=== PATIENT | female | born 1960 | race Caucasian/White ===

== ENCOUNTER 2016-10-23 16:54 | Inpatient (IN) | payer OTHER ==
[~2016-10-23] VITALS: Ht 165.1 cm; Wt 67.5 kg
[~2016-10-23 16:54] MED LIST: DILA8TAB4 PO
[2016-10-23 17:14] VITALS: BP 152/97; PULSE 143; RESP 22; TEMP 99.6; O2SAT 96
[2016-10-23] MEDS ORDERED: LORazepam 2 MG/ML VIAL IV ONE (17:45)
[2016-10-23 18:21] LABS: AMPHETAMINE, URINE NEG (NEG); BARBITURATES, URINE NEG (NEG); COCAINE, URINE POS (NEG)
[2016-10-23] MEDS ORDERED: SODIUM CHLOR 0.9% 1000 ML INJ 1,000 ML IV ONE (18:30)
[2016-10-23 18:52] LABS: AUTOMATED NEUTROPHIL # 5.3 TH/MM3 (1.8-7.7); BASOPHIL % 0.6 % (0.0-2.0); EOSINOPHIL % 0.2 % (0.0-4.0); HEMATOCRIT 35.8 % (35.0-46.0); HEMO FLAGS DIFF FINAL; LYMPH % 15.8 % (9.0-44.0); LYMPHOCYTE # 1.1 TH/MM3 (1.0-4.8); MEAN CELL VOLUME 86.4 FL (80.0-100.0); MEAN CORPUSCULAR HEMOGLOBIN 28.8 PG (27.0-34.0); MEAN CORPUSCULAR HGB CONC 33.3 % (32.0-36.0); NEUT % 77.4 % (16.0-70.0); PLATELET COUNT 215 TH/MM3 (150-450); RED BLOOD COUNT 4.14 MIL/MM3 (4.00-5.30); RED CELL DISTRIBUTION WIDTH 13.4 % (11.6-17.2); WHITE BLOOD COUNT 6.8 TH/MM3 (4.0-11.0)
[2016-10-23 19:05] VITALS: BP 92/64; PULSE 90; RESP 16; TEMP 98.4; O2SAT 96
[2016-10-23 19:09] LABS: ANION GAP 13 MEQ/L (5-15)
[2016-10-23 19:12] LABS: ACETAMINOPHEN LESS THAN 2.0 MCG/ML (10.0-30.0); ALKALINE PHOSPHATASE 114 U/L (45-117); ALT (GPT) 17 U/L (10-53); AST (GOT) 19 U/L (15-37); BICARBONATE 22.4 MEQ/L (21.0-32.0); BLOOD UREA NITROGEN 21 MG/DL (7-18); CHLORIDE 104 MEQ/L (98-107); GLOMERULAR FILTRATION RATE 40 ML/MIN (>89); POTASSIUM 4.1 MEQ/L (3.5-5.1); SODIUM (NA) 139 MEQ/L (136-145); TOTAL BILIRUBIN ADULT 0.5 MG/DL (0.2-1.0)
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
[2016-10-23] MEDS ORDERED: METH10SO PO (19:16)
[2016-10-23 19:18] LABS: CREATINE KINASE 93 U/L (26-192)
--- NOTE | 2016-10-23 19:52 | RADRPT ---
EXAM DATE/TIME: 10/23/2016 18:41 [facility] COMPARISON: CHEST SINGLE AP, January 14, 2015, 5:11. INDICATIONS : Chest Pain MEDICAL HISTORY : None. SURGICAL HISTORY : Right hip repair ENCOUNTER: Initial ACUITY: 1 day PAIN SCORE: 5/10 LOCATION: Bilateral chest FINDINGS: A single view of the chest demonstrates the lungs to be symmetrically aerated without evidence of mas s, infiltrate or effusion. The cardiomediastinal contours are unremarkable. Osseous structures are intact. CONCLUSION: The lungs are clear. Les Nuñez MD on October 23, 2016 at 19:50 Board Certified Radiologist. This report was verified electronically.
[2016-10-23 20:43] LABS: BACTERIA, URINE RARE /hpf; COMMENT (UR) CULTURE INDICATED; CULTURE IF INDICATED CULTURE INDICATED; HYALINE CAST, URINE 47 /lpf (RARE); MUCUS URINE FEW /lpf (OCC); SQUAMOUS EPITHELIAL CELL URINE 3 /hpf (0-5)
[2016-10-23 20:45] LABS: BLOOD, URINE NEG (NEG); GLUCOSE,URINE NEG (NEG); KETONE, URINE 10 mg/dL (NEG); NITRITE,URINE NEG (NEG); PH, URINE 7.5 (5.0-8.5); URINE COLOR YELLOW (YELLW/STRAW)
[2016-10-23] MEDS ORDERED: BACT800T5 PO (21:23)
--- NOTE | 2016-10-23 21:25 | PD ---
Data Data Last Documented VS Vital Signs Date Time Temp Pulse Resp B/P Pulse Ox O2 Delivery O2 Flow Rate FiO2 10/23/16 19:05 98.4 90 16 92/64 96 Orders Complete Blood Count With Diff (10/23/16 17:32) Comprehensive Metabolic Panel (10/23/16 17:32) Psych Screen (10/23/16 17:32) Lorazepam Inj (Ativan Inj) (10/23/16 17:45) Drug Screen, Random Urine (10/23/16 17:32) Alcohol (Ethanol) (10/23/16 17:32) Salicylates (Aspirin) (10/23/16 17:32) Tylenol (Acetaminophen) (10/23/16 17:32) Creatine Kinase (Cpk) (10/23/16 17:32) Troponin I (10/23/16 17:47) Chest, Single Ap (10/23/16 ) Electrocardiogram (10/23/16 ) Sodium Chlor 0.9% 1000 Ml Inj (Ns 1000 M (10/23/16 18:30) Urinalysis - C+S If Indicated (10/23/16 19:12) Urine Culture (10/23/16 17:53) Labs Laboratory Tests Test 10/23/16 10/23/16 17:53 18:20 Urine Color YELLOW Urine Turbidity HAZY Urine pH 7.5 Urine Specific [place] 1.027 Urine Protein 30 mg/dL Urine Glucose (UA) NEG mg/dL Urine Ketones 10 mg/dL Urine Occult Blood NEG Urine Nitrite NEG Urine Bilirubin NEG Urine Urobilinogen 4.0 MG/DL Urine Leukocyte Esterase MOD Urine RBC 3 /hpf Urine WBC 12 /hpf Urine Squamous Epithelial 3 /hpf Cells Urine Bacteria RARE /hpf Urine Hyaline Casts 47 /lpf Urine Mucus FEW /lpf Microscopic Urinalysis Comment CULTURE INDICATED Urine Opiates Screen NEG Urine Barbiturates Screen NEG Urine Amphetamines Screen NEG Urine Benzodiazepines Screen NEG Urine Cocaine Screen POS Urine Cannabinoids Screen NEG White Blood Count 6.8 TH/MM3 Red Blood Count 4.14 MIL/MM3 Hemoglobin 11.9 GM/DL Hematocrit 35.8 % Mean Corpuscular Volume 86.4 FL Mean Corpuscular Hemoglobin 28.8 PG Mean Corpuscular Hemoglobin 33.3 % Concent Red Cell Distribution Width 13.4 % Platelet Count 215 TH/MM3 Mean Platelet Volume 8.1 FL Neutrophils (%) (Auto) 77.4 % Lymphocytes (%) (Auto) 15.8 % Monocytes (%) (Auto) 6.0 % Eosinophils (%) (Auto) 0.2 % Basophils (%) (Auto) 0.6 % Neutrophils # (Auto) 5.3 TH/MM3 Lymphocytes # (Auto) 1.1 TH/MM3 Monocytes # (Auto) 0.4 TH/MM3 Eosinophils # (Auto) 0.0 TH/MM3 Basophils # (Auto) 0.0 TH/MM3 CBC Comment DIFF FINAL Differential Comment Sodium Level 139 MEQ/L Potassium Level 4.1 MEQ/L Chloride Level 104 MEQ/L Carbon Dioxide Level 22.4 MEQ/L Anion Gap 13 MEQ/L Blood Urea Nitrogen 21 MG/DL Creatinine 1.39 MG/DL Estimat Glomerular Filtration 40 ML/MIN Rate Random Glucose 108 MG/DL Calcium Level 10.1 MG/DL Total Bilirubin 0.5 MG/DL Aspartate Amino Transf 19 U/L (AST/SGOT) Alanine Aminotransferase 17 U/L (ALT/SGPT) Alkaline Phosphatase 114 U/L Total Creatine Kinase 93 U/L Troponin I LESS THAN 0.02 NG/ML Total Protein 8.3 GM/DL Albumin 4.3 GM/DL Salicylates Level 4.5 MG/DL Acetaminophen Level LESS THAN 2.0 MCG/ML Ethyl Alcohol Level LESS THAN 3 MG/DL [facility] Medical Record Reviewed: Yes Supervised Visit with MAE: No Narrative Course CBC & BMP Diagram 10/23/16 18:20 LFTs are essentially normal The troponin is less than 0.02 Total creatinine kinase 93 Toxicology positive for cocaine Alcohol less than 3 Tylenol less than 2 Salicylates 4.5 Patient was found resting comfortably in her room at 9:15 PM. She was arousable with gentle pressure on the leg. On exam there is minimal tenderness in the abdomen and on the right flank. Moderate leukocyte esterase and 12 WBCs are observed along with urine bacteria. We will give a dose of Rocephin here. She'll also receive a Bactrim prescription. She did note a history of renal stones and evaluated at [facility]. We received records which demonstrated a 7 mm distal right UVJ stone from 3 months prior. I'd prefer to avoid excessive ionizing radiation exposure for what is considered to be very low pretest probability of obstructing stone, vanishingly low pretest probability. I don't believe she requires admission to the hospital at this time. Given apparent suicidal gesture evaluation by psychiatry service appreciated. Diagnosis Primary Impression: Suicide attempt Additional Impressions: Cocaine abuse UTI (urinary tract infection) Qualified Code: N30.01 - Acute cystitis with hematuria Additional Instruction: You have a choice when it comes to health care, and we are glad that you chose [facility]. Hopefully, we have met your expectations on today's visit. You are welcome to return to [facility] at any time, as we are committed to meeting the health care needs of our community. Med/Other Pt SpecificInfo: Prescription(s) given Scripts Sulfamethoxazole-Trimethoprim (Bactrim DS)800-160 Mg Tab1 Tab PO BID #14 TAB Ref 0 Prov:Toribio Britt MD 10/23/16 Toribio Britt MD Oct 23, 2016 21:25
[2016-10-23] MEDS ORDERED: cefTRIAXone INJ 1,000 MG in SODIUM CHLORIDE 0.9% INJ 100 ML IV ONE (21:45)
[2016-10-23 22:07] VITALS: BP 103/61; PULSE 76; RESP 16; TEMP 98; O2SAT 96
[2016-10-24 02:38] VITALS: BP 97/58; PULSE 84; RESP 18; O2SAT 97
[2016-10-24 06:39] VITALS: BP 104/67; PULSE 78; RESP 18; O2SAT 96
[2016-10-24 10:00] VITALS: BP 118/57; PULSE 86; RESP 18
--- NOTE | 2016-10-24 14:54 | EKG ---
Date Performed: 10/23/2016 Time Performed: 17:55:30 PTAGE: 55 years EKG: SINUS TACHYCARDIA NONSPECIFIC ST & T-WAVE ABNORMALITY ST-T wave changes are more pronounced ABNORMAL RHYTHM ECG PREVIOUS TRACING : 02/20/2016 21.55 DOCTOR: Julio Long Interpretating Date/Time 10/24/2016 14:53:04
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
[2016-10-24] MEDS ORDERED: MAGNESIUM HYDROXIDE SUSP 30 ML CUP PO PRN (17:00)
[2016-10-24] MEDS ORDERED: ACETAMINOPHEN 325 MG TAB PO PRN (17:00)
[2016-10-24] MEDS ORDERED: ALUMINUM/MAGNESIUM/SIMETH 30 ML CUP PO PRN (17:00)
[2016-10-24 18:23] VITALS: BP 104/58; PULSE 84; RESP 18; TEMP 98; O2SAT 99
[2016-10-24] MEDS: SULFAMETHOXAZOLE-TRIMETHOPRIM DS 800-160 MG TAB PO SCH (21:49)
[2016-10-25 04:55] VITALS: BP 99/60; PULSE 71; RESP 17; TEMP 97.6; O2SAT 97
[2016-10-25] MEDS: SULFAMETHOXAZOLE-TRIMETHOPRIM DS 800-160 MG TAB PO SCH ×2 (08:56→20:39)
[2016-10-25 09:32] LABS: ANION GAP 12 MEQ/L (5-15); BICARBONATE 21.6 MEQ/L (21.0-32.0); BLOOD UREA NITROGEN 25 MG/DL (7-18); CHLORIDE 108 MEQ/L (98-107); GLOMERULAR FILTRATION RATE 53 ML/MIN (>89); HDL CHOLESTEROL 42.5 MG/DL (40.0-60.0); LDL CHOLESTEROL 180 MG/DL (0-99); POTASSIUM 3.9 MEQ/L (3.5-5.1); SODIUM (NA) 142 MEQ/L (136-145)
[2016-10-25 13:19] LABS: HEMOGLOBIN A1a 1.2 %; HEMOGLOBIN Ao 85.3 %; HEMOGLOBIN F 1.1 %; HEMOGLOBIN LA1C 1.9 %; HEMOGLOBIN P3 3.5 %
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
[2016-10-25] MEDS: NICOTINE 21 MG/24 HR PATCH T-DERMAL SCH (17:30)
[2016-10-25] MEDS: REMOVE OLD NICOTINE PATCH T-DERMAL SCH (17:30)
[2016-10-25 18:00] VITALS: BP 120/59; PULSE 81; RESP 17; TEMP 98.6; O2SAT 97
[2016-10-25] MEDS ORDERED: diphenhydrAMINE HCL 50 MG CAP PO PRN (21:00)
[2016-10-26 05:45] VITALS: BP 104/60; PULSE 83; RESP 16; TEMP 97.8
[2016-10-26] MEDS: REMOVE OLD NICOTINE PATCH T-DERMAL SCH (08:46)
[2016-10-26] MEDS: SULFAMETHOXAZOLE-TRIMETHOPRIM DS 800-160 MG TAB PO SCH (08:46)
[2016-10-26] MEDS: NICOTINE 21 MG/24 HR PATCH T-DERMAL SCH (08:46)
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
[2016-10-26] MEDS ORDERED: BACT800T5 PO (12:56)
== END 2016-10-26 15:40 | disposition home or self-care (01) | DRG 882 ==
LOC: NEPJ 16:54 → H260 10-24 17:01
PROVIDERS: ADMIT Psychiatry & Neurology Psychiatry; ATTEND Psychiatry & Neurology Psychiatry
DX: F43.25 Adjustment disorder with mixed disturbance of emotions and conduct (principal); R45.851 Suicidal ideations; F14.10 Cocaine abuse, uncomplicated; F11.10 Opioid abuse, uncomplicated; F41.9 Anxiety disorder, unspecified; F32.9 Major depressive disorder, single episode, unspecified; G47.30 Sleep apnea, unspecified; G43.909 Migraine, unspecified, not intractable, without status migrainosus; Z86.73 Personal history of transient ischemic attack (TIA), and cerebral infarction without residual deficits; Z87.442 Personal history of urinary calculi; Z72.0 Tobacco use
CPT/HCPCS: 71010; 80048; 80053; 80061; 80307; 81001; 82550; 83036; 84484; 85025; 87086; 93005; 96361; 96365; 96375; J0696; J2060; J7030

== ENCOUNTER 2017-09-11 21:12 | Emergency (ER) | payer SELFPAY ==
[~2017-09-11] VITALS: Ht 165.1 cm; Wt 60.0 kg
[~2017-09-11 21:12] MED LIST changes: +BACT800T5 PO; -DILA8TAB4 PO; +METH10SO PO
[2017-09-11 21:19] VITALS: BP 121/84; PULSE 118; RESP 16; TEMP 98.6; O2SAT 100
== END 2017-09-11 23:38 | disposition left against medical advice (07) ==
LOC: NETRI 21:12
DX: J11.1 Influenza due to unidentified influenza virus with other respiratory manifestations (principal)
CPT/HCPCS: 99281